=== PATIENT | male | born 1980 ===

== ENCOUNTER 2021-12-17 22:03 | Emergency (ER) | payer BC ==
[2021-12-17] MEDS ORDERED: Sodium Chloride 0.9% 2.5 ML Syringe FLUSH PRN (22:10)
[2021-12-17] MEDS ORDERED: Sodium Chloride 0.9% 10 ML Syringe FLUSH PRN (22:10)
[2021-12-17] MEDS ORDERED: Diphtheria,Pertussis(Acell),Tetanus Vaccine 0.5 ML Syringe IM ONE (22:11)
[2021-12-17] MEDS ORDERED: Iopamidol 755 MG/ML 500 ML Multipack Bottle IVPUSH STA (22:45)
[2021-12-17] MEDS ORDERED: Hydrogen Peroxide 3% Top Soln 473 ML Bottle ONE (22:47)
[2021-12-17] MEDS ORDERED: Sodium Chloride 0.9% 1,000 ML IV ONE (22:58)
[2021-12-17] MEDS ORDERED: Lidocaine 1% 50 ML MDV ONE (22:59)
[2021-12-17] MEDS ORDERED: Morphine 2 MG/ML SYRINGE ONE (23:08)
[2021-12-17] MEDS ORDERED: Morphine 4 MG/ML VIAL ONE (23:18)
[2021-12-17] MEDS ORDERED: ceFAZolin 2 GM in Premix Bag 1 BAG IV ONE (23:36)
[2021-12-17] MEDS ORDERED: Piperacillin/Tazobactam 3.375 GM in Sodium Chloride 0.9% 50 ML IV ONE (23:44)
[2021-12-18 00:55] LABS: BLOOD UREA NITROGEN,BUN 18 mg/dL (7.0-18.0); CARBON DIOXIDE,CO2 22.7 mmol/L (21.0-32.0); CHLORIDE,CL 105 mmol/L (98-107); GLUCOSE RANDOM 104 mg/dL (74-106); POTASSIUM,K 3.2 mmol/L (3.5-5.1); SODIUM,NA 139 mmol/L (136-148)
[2021-12-18] MEDS ORDERED: Morphine 4 MG/ML VIAL IVPUSH STA ×2 (01:19)
[2021-12-18] MEDS ORDERED: Sodium Chloride 0.9% 1,000 ML IV STA (01:20)
[2021-12-18] MEDS ORDERED: Sodium Chloride 0.9% 1,000 ML IV ONE (01:39)
[2021-12-18] MEDS ORDERED: Ondansetron 4 MG/2 ML SDV IVPUSH ONE (03:48)
== END 2021-12-18 08:51 | disposition home or self-care (01) ==
LOC: MW.ED 22:03
DX: S01.01XA Laceration without foreign body of scalp, initial encounter (principal); Z23 Encounter for immunization; V49.40XA Driver injured in collision with unspecified motor vehicles in traffic accident, initial encounter; Y92.410 Unspecified street and highway as the place of occurrence of the external cause
CPT/HCPCS: 12005; 36415; 70450; 71045; 71275; 72125; 74177; 80053; 80305; 80307; 85025; 85610; 90471; 90715; 93005; 96365; 96375; 99284; J2270; J2405; J2543; J3490; J7030; Q9967